=== PATIENT | male | born 1990 | race Caucasian/White ===

== ENCOUNTER 2021-10-18 18:15 | Emergency (ER) | payer OTHER ==
[2021-10-18 19:00] VITALS: BP 124/61; PULSE 67; RESP 17; TEMP 98.5; BMI 23.8
[2021-10-18] MEDS ORDERED: KETOROLAC TROMETHAMINE 30 MG/1 ML VIAL IM ONE (20:17)
[2021-10-18] MEDS ORDERED: KETOROLAC TROMETHAMINE 30 MG/1 ML VIAL ONE (20:19)
== END 2021-10-18 20:34 | disposition home or self-care (01) ==
LOC: JER 18:15 → JERFT 18:15
PROC: 3E0233Z Introduction of Anti-inflammatory into Muscle, Percutaneous Approach (ICD-10-PCS; principal; 2021-10-18)
DX: M54.9 Dorsalgia, unspecified (principal)
CPT/HCPCS: 99283-25